=== PATIENT | female | born 1935 | race African-American/Black ===

== ENCOUNTER 2018-10-18 12:55 | Inpatient (IN) | payer OTHER | END 2018-10-20 20:14 | LOC: ER 12:55 → TELE 20:40 → TELE-CENTR 21:55 | DX: G93.41 Metabolic encephalopathy (principal); J18.1 Lobar pneumonia, unspecified organism; N39.0 Urinary tract infection, site not specified ==

== ENCOUNTER 2018-11-01 22:40 | Inpatient (IN) | payer OTHER | END 2018-11-03 22:00 | LOC: OVERFLOW 22:41 → EAST 11-02 09:28 → ER 22:40 | DX: L03.113 Cellulitis of right upper limb (principal); N39.0 Urinary tract infection, site not specified ==